=== PATIENT | male | born 1995 | race Caucasian/White ===

== ENCOUNTER 2025-02-18 10:58 | Emergency (ER) | payer SELFPAY ==
[2025-02-18 11:09] VITALS: BP 130/76; PULSE 84; RESP 18; TEMP 97.5
[2025-02-18] MEDS ORDERED: ACETAMINOPHEN 325 MG TABLET (FP) ONE (11:59)
[2025-02-18] MEDS: ACETAMINOPHEN 500 MG TABLET (FP) PO ONE (12:08)
[2025-02-18] MEDS ORDERED: AMOX TR/POT CLAV 875MG/125MG TABLETS (FP) ONE (13:10)
[2025-02-18] MEDS: AMOX TR/POT CLAV 875MG/125MG TABLETS (FP) PO ONE (14:17)
== END 2025-02-18 14:30 | disposition home or self-care (01) ==
LOC: JER 10:58
PROC: 0HQFXZZ Repair Right Hand Skin, External Approach (ICD-10-PCS; principal; 2025-02-18)
DX: S61.210A Laceration without foreign body of right index finger without damage to nail, initial encounter (principal); W23.1XXA Caught, crushed, jammed, or pinched between stationary objects, initial encounter; Y99.0 Civilian activity done for income or pay
CPT/HCPCS: 73130-TC-RT-FY; 99283-25